=== PATIENT | female | born 1960 ===

== ENCOUNTER 2017-05-31 08:15 | Day surgery (SDC) | payer SELFPAY ==
[2017-05-31] MEDS ORDERED: Lactated Ringer's 1,000 ML IV ONE (09:00)
[2017-05-31] MEDS ORDERED: Lidocaine 2% MPF (5 ml) Inj ONE (10:26)
[2017-05-31] MEDS ORDERED: Propofol 10 mg/ml Inj (20 ML) ONE (10:26)
[2017-05-31 11:27] VITALS: BP 112/69; PULSE 70; RESP 16; TEMP 97.6; O2SAT 100
== END 2017-05-31 11:49 | disposition home or self-care (01) ==
LOC: H.ENDO 08:15
PROVIDERS: ATTEND Internal Medicine Gastroenterology
DX: Z12.11 Encounter for screening for malignant neoplasm of colon (principal); E78.5 Hyperlipidemia, unspecified; K64.8 Other hemorrhoids; K44.9 Diaphragmatic hernia without obstruction or gangrene; K31.9 Disease of stomach and duodenum, unspecified; K30 Functional dyspepsia; K29.50 Unspecified chronic gastritis without bleeding
CPT/HCPCS: 43239; 45378; 88305; J2704; J7120